=== PATIENT | female | born 1955 ===

== ENCOUNTER 2018-03-25 08:08 | Outpatient (CLI) | payer OTHER ==
[~2018-03-25 08:08] MED LIST: CELLCEPT500 MG PO; COZAAR25 MG PO; FENOFIBRATE40 MG PO; FOLIC ACID1 MG PO; GABAPENT PO; LASIX PO; NAPROXEN SODIU550 M1 PO; OSTERA TABLET1 EACH PO; PREDNISONE PO; PRILOSEC10 MG PO; RAPAMUNE1 MG PO; SEPTRA PO; SYNTHROID125 MCG PO
== END 2018-03-25 08:33 | disposition home or self-care (01) ==
LOC: MAMO-SONO 08:08
DX: Z12.31 Encounter for screening mammogram for malignant neoplasm of breast (principal); Z87.898 Personal history of other specified conditions; N64.89 Other specified disorders of breast

== ENCOUNTER 2018-03-28 12:48 | Outpatient (CLI) | payer OTHER | END 2018-03-28 12:51 | disposition home or self-care (01) | LOC: RAD 12:48 | DX: M54.2 Cervicalgia (principal) ==

== ENCOUNTER → 2019-09-25 | Outpatient (CLI) | payer OTHER | END | disposition home or self-care (01) | LOC: MAMO-SONO 09:15 | DX: Z12.31 Encounter for screening mammogram for malignant neoplasm of breast (principal); Z87.898 Personal history of other specified conditions; N64.89 Other specified disorders of breast ==

== ENCOUNTER 2021-01-10 07:53 | Outpatient (CLI) | payer OTHER | END 2021-01-10 08:01 | disposition home or self-care (01) | LOC: MAMO-SONO 07:53 | PROVIDERS: ATTEND Specialist | DX: R92.2 Inconclusive mammogram (principal); N64.59 Other signs and symptoms in breast ==

== ENCOUNTER 2023-11-14 09:09 | Outpatient (CLI) | payer OTHER | END 2023-11-14 09:18 | disposition home or self-care (01) | LOC: MAMO-SONO 09:09 | PROVIDERS: ATTEND Specialist | DX: Z12.31 Encounter for screening mammogram for malignant neoplasm of breast (principal) ==